=== PATIENT | male | born 1990 | race Caucasian/White ===

== ENCOUNTER 2020-01-26 17:13 | Emergency (ER) | payer OTHER, SELFPAY ==
[2020-01-26 17:16] VITALS: BP 152/82; PULSE 70; RESP 18; TEMP 37; O2SAT 100
--- NOTE | 2020-01-26 18:21 | ED.GENADULT ---
HPI - General Adult General Chief complaint: Unspecified Stated complaint: wants COVID test/has no symptoms Time Seen by Provider: 01/26/20 17:59 Source: patient Mode of arrival: ambulatory History of Present Illness HPI narrative: Patient is a 29 y/o male presenting COVID test. He states that he just found out that his mother tested positive for COVID and he was with her 3 days ago. He states that he has a slight headache and he had some chills and sweating last night. He denies any fever, cough or SOB. Related Data Allergies Allergy/AdvReac Type Severity Reaction Status Date / Time No Known Allergies Allergy Verified 01/26/20 17:19 Review of Systems Constitutional: Constitutional: Reports as per HPI, Reports chills, Denies fever(s), Reports headache(s), Reports night sweats and Denies weakness Eyes: Eyes: Denies blurry vision ENT: Denies headache(s) and Denies neck pain Cardiovascular: Cardiovascular: Denies chest pain and Denies dyspnea Respiratory: Respiratory: Denies cough and Denies dyspnea Gastrointestinal: Gastrointestinal: Denies abdominal pain, Denies diarrhea, Denies nausea and Denies vomiting Genitourinary: Genitourinary: Denies hematuria and Denies dysuria Musculoskeletal: Musculoskeletal: Denies back pain and Denies neck pain Neurologic: Denies headache(s) and Denies weakness [facility] Social History Social History Smoking status: Never smoker Alcohol intake: current Gender identity (if verbalized by the patient): Male Exam Const: General: no acute distress and well developed Orientation/consciousness: oriented to person, oriented to place, oriented to time and patient oriented x3 HENMT: Head: normocephalic Ears: external ears normal General nose exam: Normal external nose present Eyes: General: appearance normal, both eyes and all related structures Conjunctivae: conjunctivae normal Neck: Neck: normal visual inspection and full ROM Chest: Chest palpation & inspection: normal inspection of the chest and no tenderness Resp: Effort & Inspection: normal respiratory effort and able to speak in complete sentences Cardio: Rate: regular rate Rhythm: regular rhythm GI: GI Palp: No abdominal tenderness and Yes Soft to palpation Skin: General skin exam: normal color and turgor normal Neuro: General: oriented to person, oriented to place, oriented to time and patient oriented x3 Cognition (Neuro): normal cognition Extrem: General: normal to inspection, full ROM and no pedal edema Psych: Appearance: grossly normal Mental Status: mental status grossly normal Affect: normal affect Course Vital Signs Vital signs: Vital Signs Temperature 37.0 C 01/26/20 17:16 Pulse Rate 70 01/26/20 17:16 Respiratory Rate 18 01/26/20 17:16 Blood Pressure 152/82 H 01/26/20 17:16 Pulse Oximetry 100 01/26/20 17:16 Temperature 37.0 C 01/26/20 17:16 Pulse Rate 70 01/26/20 17:16 Respiratory Rate 18 01/26/20 17:16 Blood Pressure 152/82 H 01/26/20 17:16 Pulse Oximetry 100 01/26/20 17:16 Medical Decision Making Vital Signs Vital Signs: Vital Signs Temperature 37.0 C 01/26/20 17:16 Pulse Rate 70 01/26/20 17:16 Respiratory Rate 18 01/26/20 17:16 Blood Pressure 152/82 H 01/26/20 17:16 Pulse Oximetry 100 01/26/20 17:16 Temperature 37.0 C 01/26/20 17:16 Pulse Rate 70 01/26/20 17:16 Respiratory Rate 18 01/26/20 17:16 Blood Pressure 152/82 H 01/26/20 17:16 Pulse Oximetry 100 01/26/20 17:16 Discharge Plan Discharge Clinical Impression: Person under investigation for COVID-19 Headache Qualifiers: Headache type: unspecified Headache chronicity pattern: unspecified pattern Intractability: not intractable Qualified Code(s): R51 - Headache Instructions: General Headache (ED), COVID-19 (Coronavirus Disease 2019) (ED) Follow-up/Referrals: Rogelio Schmidt MD [Physician] - 1
[2020-01-27 14:09] LABS: SARS-CoV-2 RNA PCR Positive
== END 2020-01-26 18:31 | disposition home or self-care (01) ==
PROVIDERS: Emergency Provider Emergency Medicine
DX: U07.1 COVID-19 (principal)
CPT/HCPCS: 87635; 99283; C9803; U0003